=== PATIENT | male | born 1990 | race Caucasian/White ===

== ENCOUNTER 2018-09-24 07:09 | Emergency (ER) | payer OTHER ==
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
[2018-09-24 08:07] VITALS: TEMP 98.6; BMI 19.8
[2018-09-24] MEDS ORDERED: ACETAMINOPHEN 500 MG TABLET (FP) PO ONE (08:10)
[2018-09-24] MEDS ORDERED: ACETAMINOPHEN 325 MG TABLET (FP) ONE (08:13)
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
[2018-09-24 09:16] VITALS: BP 118/75; PULSE 88
== END 2018-09-24 09:17 | disposition home or self-care (01) ==
LOC: JER 07:09
DX: M25.512 Pain in left shoulder (principal); Z21 Asymptomatic human immunodeficiency virus [HIV] infection status
CPT/HCPCS: 73030-TC-LT-FY; 99283-25